=== PATIENT | female | born 1955 | race Caucasian/White ===

== ENCOUNTER 2018-07-19 14:14 | Emergency (ER) | payer OTHER ==
[~2018-07-19] VITALS: Ht 165.1 cm; Wt 52.6 kg
[2018-07-19] MEDS ORDERED: SIMVASTATIN40 MG (14:40)
== END 2018-07-19 16:14 | disposition home or self-care (01) ==
LOC: ER 14:14
DX: S51.852A Open bite of left forearm, initial encounter (principal); W54.0XXA Bitten by dog, initial encounter; Y93.89 Activity, other specified; Y92.89 Other specified places as the place of occurrence of the external cause; Y99.8 Other external cause status